=== PATIENT | female | born 1975 | race Two or more races ===

== ENCOUNTER 2018-02-21 09:23 | Emergency (ER) | payer MEDICARE, OTHER ==
[~2018-02-21] VITALS: Ht 165.1 cm; Wt 61.2 kg
[2018-02-21 09:37] VITALS: BP 136/94
[2018-02-21] MEDS ORDERED: KETOROLAC TROMETH 60MG/2ML VIAL IM ONE (10:30)
[2018-02-21] MEDS ORDERED: KETOROLAC TROMETH 30 MG/ML 1ML VIAL IV ONE (11:30)
== END 2018-02-21 12:28 | disposition home or self-care (01) ==
LOC: ER 09:23 → EDBD 09:23 → ER 12:28
DX: S16.1XXA Strain of muscle, fascia and tendon at neck level, initial encounter (principal); S39.012A Strain of muscle, fascia and tendon of lower back, initial encounter; V43.52XA Car driver injured in collision with other type car in traffic accident, initial encounter; Y93.89 Activity, other specified; Y92.488 Other paved roadways as the place of occurrence of the external cause; Y99.8 Other external cause status
CPT/HCPCS: 72125; 72131; 96374; 99284; J1885